=== PATIENT | female | born 1965 | race African-American/Black ===

== ENCOUNTER 2017-02-26 23:45 | Emergency (ER) | payer MEDICAID ==
[2015-10-23 15:47] VITALS: BMI 33.9
[~2017-02-26 23:45] MED LIST: ALDACTONE25 MG PO; CATAPRES0.1 MG PO; CYCLOBENZAPRINE10 MG PO; NORVASC2.5 MG PO; PRINIVIL20 MG PO; PROTONIX40 MG PO; ZANTAC150 MG PO
== END 2017-02-27 00:33 | disposition home or self-care (01) ==
LOC: D.ER 23:45
DX: M79.602 Pain in left arm (principal); K21.9 Gastro-esophageal reflux disease without esophagitis; I10 Essential (primary) hypertension

== ENCOUNTER 2017-07-03 00:30 | Emergency (ER) | payer MEDICAID ==
[2015-10-23 15:47] VITALS: BMI 33.9
== END 2017-07-03 01:50 | disposition home or self-care (01) ==
LOC: D.ER 00:30
DX: J01.90 Acute sinusitis, unspecified (principal); I10 Essential (primary) hypertension

== ENCOUNTER 2017-07-28 13:41 | Emergency (ER) | payer MEDICAID ==
[2015-10-23 15:47] VITALS: BMI 33.9
== END 2017-07-28 15:30 | disposition home or self-care (01) ==
LOC: D.ER 13:41
DX: M25.512 Pain in left shoulder (principal); I10 Essential (primary) hypertension

== ENCOUNTER 2018-03-17 02:04 | Emergency (ER) | payer MEDICAID ==
[2015-10-23 15:47] VITALS: BMI 33.9
== END 2018-03-17 03:26 | disposition home or self-care (01) ==
LOC: D.ER 02:04
DX: S16.1XXA Strain of muscle, fascia and tendon at neck level, initial encounter (principal); X58.XXXA Exposure to other specified factors, initial encounter; Y93.89 Activity, other specified; Y92.019 Unspecified place in single-family (private) house as the place of occurrence of the external cause; K21.9 Gastro-esophageal reflux disease without esophagitis; I10 Essential (primary) hypertension

== ENCOUNTER 2018-10-31 23:14 | Emergency (ER) | payer MEDICAID ==
[~2018-10-31] VITALS: Ht 167.6 cm; Wt 94.8 kg
[2018-10-31 23:30] VITALS: Ht 167.6 cm; Wt 94.8 kg
[2018-10-31] MEDS ORDERED: OMEPRAZOLE20 M1 PO ×2 (23:33)
[2018-11-01] MEDS ORDERED: FLUTICASONE PRO16 GM NASAL (02:20)
[2018-11-01 02:25] VITALS: BP 120/79
== END 2018-11-01 02:25 | disposition home or self-care (01) ==
LOC: D.ER 23:14
DX: R09.82 Postnasal drip (principal); I10 Essential (primary) hypertension

== ENCOUNTER 2018-11-02 22:27 | Emergency (ER) | payer MEDICAID ==
[~2018-11-02] VITALS: Ht 167.6 cm; Wt 95.0 kg
[~2018-11-02 22:27] MED LIST changes: +FLUTICASONE PRO16 GM NASAL; +OMEPRAZOLE20 M1 PO
[2018-11-02 22:39] VITALS: Ht 167.6 cm; Wt 95.0 kg
[2018-11-03] MEDS ORDERED: VENTOLIN HFA18 GM INH (00:08)
[2018-11-03] MEDS ORDERED: VIBRAMYCIN 100100 MG PO (00:08)
[2018-11-03] MEDS ORDERED: PREDNISONE20 MG PO (00:08)
[2018-11-03 01:04] VITALS: BP 129/87
== END 2018-11-03 01:40 | disposition home or self-care (01) ==
LOC: D.ER 22:27
DX: J01.90 Acute sinusitis, unspecified (principal); J40 Bronchitis, not specified as acute or chronic; I10 Essential (primary) hypertension

== ENCOUNTER 2019-10-03 23:51 | Emergency (ER) | payer MEDICAID ==
[~2019-10-03] VITALS: Ht 167.6 cm; Wt 94.5 kg
[~2019-10-03 23:51] MED LIST changes: +PREDNISONE20 MG PO; +VENTOLIN HFA18 GM INH; +VIBRAMYCIN 100100 MG PO
[2019-10-03 23:55] VITALS: Ht 167.6 cm; Wt 94.5 kg
[2019-10-04] MEDS ORDERED: TORADOL10 MG PO (00:39)
[2019-10-04 00:56] VITALS: BP 142/88
== END 2019-10-04 00:56 | disposition home or self-care (01) ==
LOC: D.ER 23:51
DX: S90.31XA Contusion of right foot, initial encounter (principal); W22.8XXA Striking against or struck by other objects, initial encounter; Y93.9 Activity, unspecified; Y92.9 Unspecified place or not applicable; E11.9 Type 2 diabetes mellitus without complications; I10 Essential (primary) hypertension